=== PATIENT | female | born 1970 ===

== ENCOUNTER → 2018-12-27 19:44 | Outpatient (REF) | payer BC, SELFPAY | LOC: LAB 19:44 | PROVIDERS: Visit Provider Family Medicine | DX: N39.0 Urinary tract infection, site not specified (principal) | CPT/HCPCS: 87077; 87086; 87186 ==

== ENCOUNTER → 2019-01-07 19:45 | Outpatient (REF) | payer BC, SELFPAY | LOC: LAB 19:45 | PROVIDERS: Visit Provider Family Medicine | DX: N39.0 Urinary tract infection, site not specified (principal) | CPT/HCPCS: 87086 ==